=== PATIENT | male | born 1985 | race Hispanic/Latino ===

== ENCOUNTER 2017-04-11 22:47 | Emergency (ER) | payer SELFPAY ==
[2017-04-11 23:51] VITALS: BP 103/73
--- NOTE | 2017-04-12 01:55 | XRay Report ---
FINAL REPORT EXAM: XR SPINE LUMBOSACRAL 4+V HISTORY: pain/ injury TECHNIQUE: Five views lumbar spine were obtained. FINDINGS: There is a mild levoscoliosis. The disc heights and alignment appear normal. There is no evidence of fracture. The SI joints appear normal. The soft tissues well maintained. IMPRESSION: Mild levoscoliosis. No evidence of fracture.
== END 2017-04-12 | disposition left against medical advice (07) ==
LOC: ED 22:47
DX: Z53.21 Procedure and treatment not carried out due to patient leaving prior to being seen by health care provider (principal)
CPT/HCPCS: 72110